=== PATIENT | male | born 2000 | race Caucasian/White ===

== ENCOUNTER 2021-01-29 12:57 | Inpatient (IN) | payer OTHER ==
[2021-01-29] MEDS ORDERED: Ketorolac Tromethamine 30 MG/ML VIAL ONE (14:08)
[2021-01-29 14:57] LABS: #Eosinphils 0.1 thou/uL (0.0-0.7); #Lymphocytes 1.8 thou/uL (1.20-3.40); #Monocytes 1.1 thou/uL (0.11-0.59); #Neutrophils 8.8 thou/uL (1.40-6.50); %Basophils 0.4 % (0.0-1.0); %Eosinophils 0.5 % (0.0-10.0); %Lymphocytes 15.6 % (28.0-48.0); %Neutrophils 74.5 % (31.0-61.0); Hemoglobin 16.9 g/dL (14.0-18.0); Mean Corpuscular HGB CONC 33.4 g/dL (32.0-36.0); Mean Corpuscular Hemoglobin 29.3 pg (25.0-35.0); Mean Corpuscular Volume 87.7 fL (78.0-98.0); Mean Platelet Volume 8.8 fL (7.4-10.4); Platelet Count 229 thou/uL (130-400); RBC Distribution Width 11.3 % (11.5-14.5); Red Blood Cell (RBC) Count 5.75 mill/uL (4.00-5.20); White Blood Cell (WBC) Count 11.8 thou/uL (4.8-10.8)
[2021-01-29 15:05] LABS: ALT (SGPT) 13 U/L (8-55); AST (SGOT) 18 U/L (10-45); Albumin 4.9 g/dL (3.5-5.0); Alkaline Phosphatase 173 U/L (50-130); Anion Gap 23 mmol/L (10-20); BUN (Urea Nitrogen) 12 mg/dL (8.4-21.0); Bilirubin, Total 0.9 mg/dL (0.2-1.2); Calc. Creatinine Clearance 0 mL/min (70-130); Calcium 10.1 mg/dL (7.8-10.44); Carbon Dioxide 20 mmol/L (22-29); Chloride 94 mmol/L (98-107); Globulin 3.7 g/dL (2.4-3.5); Glucose 293 mg/dL (70-105); Lipase 6 U/L (8-78); Potassium 4.4 mmol/L (3.5-5.1); Protein, Total 8.6 g/dL (6.0-8.3); Sodium 133 mmol/L (136-145)
[2021-01-29] MEDS ORDERED: INSULIN REGULAR IN 0.9 % NACL 100 UNIT/100 ML BAG ONE (16:16)
[2021-01-29] MEDS ORDERED: NS 0.9% w/ 20 MEQ KCL 1,000 ML ONE (16:24)
[2021-01-29 16:51] LABS: Bacteria/HPF None Seen HPF (None Seen); Bilirubin Negative (Negative); Blood, Urine Negative (Negative); Clarity Clear (Clear); Glucose, Urine (Dipstick) Greater than 1000 mg/dL (Negative); Ketone, Urine Greater than 150 mg/dL (Negative); Leukocyte Negative Leu/uL (Negative); Nitrite Negative (Negative); Protein, Urine (Dipstick) 30 mg/dL (Neg-Trace); RBC/HPF None Seen HPF (0-3); Specific Gravity, Urine 1.033 (1.002-1.036); Squamous Epithelial None Seen HPF (0-3); Urobilinogen Normal mg/dL (Less than 2); WBC/HPF 0-3 HPF (0-3); pH, Urine 5.5 (5.0-9.0)
[2021-01-29 16:52] LABS: SARS-CoV-2 NAA Rapid Test Not Detected (NotDetected)
[2021-01-29] MEDS ORDERED: D5 1/2 NS w/20 mEq KCL 1,000 ML ONE (17:46)
[2021-01-29 21:15] LABS: Anion Gap 13 mmol/L (10-20); BUN (Urea Nitrogen) 10 mg/dL (8.4-21.0); Calc. Creatinine Clearance 0 mL/min (70-130); Calcium 9.3 mg/dL (7.8-10.44); Carbon Dioxide 24 mmol/L (22-29); Chloride 104 mmol/L (98-107); Glucose 207 mg/dL (70-105); Potassium 4.3 mmol/L (3.5-5.1); Sodium 137 mmol/L (136-145)
[2021-01-29] MEDS ORDERED: HumaLOG 300 UNITS/3 ML VIAL SC PRN (21:32)
[2021-01-29] MEDS ORDERED: Ondansetron PF 4 MG/2 ML Vial IVP PRN (21:32)
[2021-01-29] MEDS ORDERED: Dextrose 5% in Water 1,000 ML IV PRN ×2 (21:32→22:15)
[2021-01-29] MEDS ORDERED: Dextrose 50% Abboject 50 ML SYRINGE SLOW IVP PRN ×2 (21:32→22:13)
[2021-01-29] MEDS ORDERED: Acetaminophen 650 MG Suppository PR PRN (21:32)
[2021-01-29] MEDS ORDERED: Ondansetron ODT 4 MG TAB PO PRN (21:32)
[2021-01-29] MEDS ORDERED: Acetaminophen 325 MG TAB PO PRN (21:32)
[2021-01-29] MEDS ORDERED: Aspirin Chewable 81 MG TAB PO SCH (22:00)
[2021-01-29] MEDS ORDERED: Electrolyte Replacement Protocol FS PRN (22:15)
[2021-01-29] MEDS ORDERED: Sodium Chloride 0.9% 1,000 ML IV PRN ×4 (22:15)
[2021-01-29] MEDS ORDERED: ADD ELECTROLYTE REPLACEMENT SET TO PROFILE FS SCH (22:15)
[2021-01-29] MEDS ORDERED: HUMULIN R 100 UNITS in Sodium Chloride 0.9% 100 ML IVPB SCH (22:15)
[2021-01-29] MEDS ORDERED: Dextrose 5 %-0.45 % NaCl 1,000 ML IV PRN (22:15)
[2021-01-29] MEDS ORDERED: D5 1/2 NS w/20 mEq KCL 1,000 ML IV PRN (22:15)
[2021-01-29] MEDS ORDERED: NS 0.9% w/ 20 MEQ KCL 1,000 ML/1,000 ML BAG IV PRN ×2 (22:15)
[2021-01-29 22:19] VITALS: BMI 22.0
[2021-01-29 23:00] LABS: Troponin I 0.017 ng/mL (< 0.028)
[2021-01-29] MEDS ORDERED: Lantus 1000 UNITS/10 ML VIAL SC SCH (23:30)
[2021-01-30] MEDS: HumaLOG 300 UNITS/3 ML VIAL SC PRN ×5 (01:05→13:01)
[2021-01-30 04:01] LABS: #Basophils 0.1 thou/uL (0.0-0.2); #Eosinphils 0.2 thou/uL (0.0-0.7); #Lymphocytes 2.6 thou/uL (1.20-3.40); #Monocytes 0.6 thou/uL (0.11-0.59); #Neutrophils 3.7 thou/uL (1.40-6.50); %Basophils 0.8 % (0.0-1.0); %Eosinophils 2.9 % (0.0-10.0); %Lymphocytes 35.7 % (28.0-48.0); %Monocytes 8.8 % (0.0-4.0); %Neutrophils 51.7 % (31.0-61.0); Hemoglobin 16.2 g/dL (14.0-18.0); Mean Corpuscular Hemoglobin 30.3 pg (25.0-35.0); Mean Corpuscular Volume 86.4 fL (78.0-98.0); Mean Platelet Volume 9.1 fL (7.4-10.4); Platelet Count 204 thou/uL (130-400); RBC Distribution Width 11.2 % (11.5-14.5); Red Blood Cell (RBC) Count 5.36 mill/uL (4.00-5.20); White Blood Cell (WBC) Count 7.1 thou/uL (4.8-10.8)
[2021-01-30 04:08] LABS: Anion Gap 14 mmol/L (10-20); BUN (Urea Nitrogen) 14 mg/dL (8.4-21.0); Calc. Creatinine Clearance 122 mL/min (70-130); Calcium 9.8 mg/dL (7.8-10.44); Carbon Dioxide 24 mmol/L (22-29); Chloride 104 mmol/L (98-107); Glucose 252 mg/dL (70-105); Sodium 138 mmol/L (136-145)
[2021-01-30] MEDS ORDERED: Levothyroxine 175 MCG TAB PO SCH (07:30)
[2021-01-30 08:00] LABS: Hemoglobin A1c 7.8 % (4.0-6.0)
[2021-01-30] MEDS ORDERED: Cefdinir 300 MG CAP PO SCH (09:00)
[2021-01-30] MEDS ORDERED: Aspirin Chewable 81 MG TAB PO SCH (09:00)
[2021-01-30 16:07] VITALS: BP 131/70; TEMP 98.2
[2021-01-30] MEDS ORDERED: Lantus 1000 UNITS/10 ML VIAL SC SCH (21:00)
[2021-01-31] MEDS ORDERED: Levothyroxine 175 MCG TAB PO SCH (06:00)
[2021-02-01] MEDS ORDERED: FLU VACC QS2021-22(6MOS UP)/PF 60 MCG/0.5 ML SYRINGE IM ONE (09:00)
== END 2021-01-30 16:16 | disposition home or self-care (01) | DRG 639 ==
LOC: ERS 12:57 → ERHOLD 16:31 → IMCU/EMU 19:17 → OBSVTOIN 22:19 → T4-A 01-30 08:46
PROVIDERS: ADMIT Family Medicine; ATTEND Internal Medicine
DX: E10.10 Type 1 diabetes mellitus with ketoacidosis without coma (principal); R07.9 Chest pain, unspecified; E03.9 Hypothyroidism, unspecified; F32.9 Major depressive disorder, single episode, unspecified; Z20.822 Contact with and (suspected) exposure to COVID-19; R51.9 Headache, unspecified; Z79.4 Long term (current) use of insulin
CPT/HCPCS: 36415; 36416; 71045; 80048; 80053; 81003; 81015; 82010; 83036; 83690; 84484; 85025; 85379; 93005; G0378; J1815; J1885; J3480; U0002